=== PATIENT | female | born 1950 | race Caucasian/White ===

== ENCOUNTER 2020-08-05 12:34 | Outpatient (CLI) | payer OTHER, SELFPAY ==
--- NOTE | 2020-08-05 12:44 | CT_ITS ---
WS: [id number] LDCT LUNG CANCER SCREENING TECHNIQUE: Noncontrast CT of the chest with coronal and sagittal reformatted images. CLINICAL INFORMATION: HX OF TOBACCO USE/NICOTINE DEPENDENCE COMPARISON: None. DLP: 48.91 mGy.cm DIvol: 1.[address] scans at [facility] use at least one of these dose optimization techniques: automat ed exposure control; mA and/or kV adjustment per patient size (includes targeted exams where dose is matched to clinical indication); or iterative reconstruction. FINDINGS: No suspicious pulmonary parenchymal abnormalities. Mild chronic emphysematous changes. No acute pulmo nary infiltrates. No mediastinal or hilar lymphadenopathy. Aortic calcification. Coronary calcificati on. CT/CT lung screening [id number] IMPRESSION: LUNG-RADS: 1-Negative FOLLOW UP: 12 Month: Continue annual screening with LDCT
== END 2020-08-05 12:35 | disposition home or self-care (01) ==
LOC: RAD 12:40
PROVIDERS: PCP Family Medicine; Visit Provider Nurse Practitioner Family
DX: Z12.2 Encounter for screening for malignant neoplasm of respiratory organs (principal); F17.210 Nicotine dependence, cigarettes, uncomplicated
CPT/HCPCS: G0297

== ENCOUNTER 2020-08-11 15:39 | Outpatient (CLI) | payer OTHER, SELFPAY ==
[2020-08-12 09:23] LABS: Creatinine Urine, Random 62 mg/dL (28-217)
[2020-08-12 09:31] LABS: Microalbum Creatinine Ratio Ur 16 mg/dL (0-20)
[2020-08-12 09:34] LABS: Microalbumin Random Urine < 1 ug/dL (0-20)
== END 2020-08-11 15:40 | disposition home or self-care (01) ==
LOC: LAB 15:46
PROVIDERS: PCP Family Medicine; Visit Provider Nurse Practitioner Family
DX: I10 Essential (primary) hypertension (principal)
CPT/HCPCS: 82044

== ENCOUNTER → 2021-11-03 09:54 | Outpatient (BNVA) | payer OTHER, SELFPAY | PROVIDERS: PCP Family Medicine; Visit Provider Internal Medicine Gastroenterology | DX: Z01.810 Encounter for preprocedural cardiovascular examination (principal) | CPT/HCPCS: 87635 ==

== ENCOUNTER 2023-05-20 12:27 | Outpatient (CLI) | payer OTHER, SELFPAY ==
--- NOTE | 2023-05-20 13:16 | MM_ITS ---
WS: [id number] BILATERAL 3D TOMOSYNTHESIS DIGITAL SCREENING MAMMOGRAPHY WITH CAD CLINICAL INFORMATION: SCREENING HISTORY: Screening mammogram. No current complaints. COMPARISON: 2019 TECHNIQUE: Bilateral CC and MLO views. FINDINGS: Scattered fibroglandular densities bilaterally. No suspicious focal mass, asymmetry, calcifications, or architectural distortion. No evidence of malignancy. Lucent centered calcification LEFT breast. MM/[place] [id number] IMPRESSION: BI-RADS: 2-Benign FOLLOW UP: 1 Year Follow-up Recommend return to annual screening mammography.
== END 2023-05-20 12:28 | disposition home or self-care (01) ==
PROVIDERS: PCP Nurse Practitioner Family; Visit Provider Nurse Practitioner Family
DX: Z12.31 Encounter for screening mammogram for malignant neoplasm of breast (principal)
CPT/HCPCS: 77063; 77067

== ENCOUNTER 2025-04-12 10:25 | Outpatient (CLI) | payer MEDICARE, SELFPAY ==
--- NOTE | 2025-04-12 11:00 | MR_ITS ---
WS: [id number] MRI LUMBAR SPINE NONCONTRAST TECHNIQUE: Sagittal T1, T2 and STIR imaging. Axial T1 and T2 imaging. CLINICAL INFORMATION: M54.16 - Radiculopathy, lumbar region COMPARISON: None. FINDINGS: Mild lumbar curve. Acute compression superior end plate T12 with associated fracture cleft and edema. No significant retropulsion. Loss of approximately 20% vertebral body height. L1-L2: Slight retrolisthesis. Mild disc bulging. Slight narrowing of the subarticular recess. Mild facet arthropathy. Foramen are patent. L2-L3: Slight retrolisthesis. Mild to moderate central canal stenosis. Impingement on the LEFT greater than RIGHT subarticular recess. Moderate facet arthropathy. L3-L4: Mild disc bulging with a shallow central protrusion. Moderate central canal stenosis. Impingement of traversing L4 nerve roots. Moderate facet arthropathy. Mild LEFT foraminal narrowing. L4-L5: Slight anterolisthesis. Mild disc bulging. Moderate central canal stenosis. Impingement of traversing L5 nerve roots. Moderate facet arthropathy. Foramen are patent. L5-S1: Shallow central protrusion. Impingement of traversing S1 nerve roots bilaterally. Mild to moderate central canal stenosis. Mild RIGHT foraminal narrowing. Moderate facet arthropathy. Visualized pelvic bony structures: Normal. Paravertebral soft tissues: Normal. MR/MR lumbar spine wo con* [id number] IMPRESSION: 1. Acute compression superior end plate T12 with associated fracture cleft a nd edema. No significant retropulsion. Loss of approximately 20% vertebral body height. 2. Mild to moderate central canal stenosis L2-3. 3. Moderate central canal stenosis L3-L4 and L4-L5. 4. Shallow central protrusion L5-S1 impinges the traversing RIGHT greater than LEFT S1 nerve roots with mild to moderate central canal stenosis. 5. Mild RIGHT L5-S1 foraminal narrowing. 6. Moderate facet arthropathy L4-L5 and L5-S1.
== END 2025-04-12 10:26 | disposition home or self-care (01) ==
PROVIDERS: PCP Nurse Practitioner Family; Visit Provider Anesthesiology Pain Medicine
DX: M54.16 Radiculopathy, lumbar region (principal); S22.080A Wedge compression fracture of T11-T12 vertebra, initial encounter for closed fracture; X58.XXXA Exposure to other specified factors, initial encounter; M48.061 Spinal stenosis, lumbar region without neurogenic claudication; M48.07 Spinal stenosis, lumbosacral region; M47.896 Other spondylosis, lumbar region; M47.897 Other spondylosis, lumbosacral region; M43.8X6 Other specified deforming dorsopathies, lumbar region; M51.369 Other intervertebral disc degeneration, lumbar region without mention of lumbar back pain or lower extremity pain; R93.7 Abnormal findings on diagnostic imaging of other parts of musculoskeletal system
CPT/HCPCS: 72148

== ENCOUNTER → 2025-04-15 08:21 | Outpatient (BNVA) | payer MEDICARE, SELFPAY | PROVIDERS: PCP Nurse Practitioner Family; Visit Provider Orthopaedic Surgery | DX: M51.16 Intervertebral disc disorders with radiculopathy, lumbar region (principal); M54.9 Dorsalgia, unspecified | CPT/HCPCS: 72110; 99203 ==